=== PATIENT | male | born 1995 | race Caucasian/White ===

== ENCOUNTER 2020-09-18 22:08 | Emergency (ER) | payer BC ==
[~2020-09-18] VITALS: Ht 177.8 cm; Wt 90.7 kg
[2020-09-18 22:26] VITALS: BP 132/72
[2020-09-18] MEDS ORDERED: BACTRIM DS PO STA (22:37)
--- NOTE | 2020-09-18 22:46 | ER.PDOC ---
General Chief Complaint: Skin Rash/Abscess Stated Complaint: RASH Time seen by MD: 22:30 Source: patient Exam Limitations: no limitations History of Present Illness Initial Comments 25-year-old male without significant past medical history presents with complaint of rash to bilateral legs.Patient states the rash began 2 days ago and looked pustular having little whiteheads he said. He denies any fever. 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 He does live in a camper.Patient states he came because he was concerned the area was getting infected. He admits to scratching because it has been itching.He denies any fevers chills nausea vomiting diarrhea or contact with others with similar rash. Allergies: Coded Allergies: No Known Allergies (Unverified , 09/18/20) Past Medical History Medical History: no pertinent history Surgical History: knee Social History Alcohol Use: occassionally Drug Use: none Constitutional: no symptoms reported Respiratory: no symptoms reported Cardiovascular: no symptoms reported Musculoskeletal: no symptoms reported Skin: rash Physical Exam General Appearance: alert, no distress Skin: warm/dry, with erythema (Mild erythema to left lower leg), skin rash (Rash in various stages of healing. There is no crusting or purulence noted. This is apparent on both lower legs however the left lower leg does appear mildly erythematous and mildly tender.) Location: RLE, LLE With: tenderness Extremities: nml ROM, edema Respiratory: no resp. distress NEURO/PSYCH: oriented x 3 Results/Orders Results/Orders Orders - PAM DANIELSON MD Sulfamethoxazole/Trimethoprim (Bactrim D (09/18/20 22:37) Tetanus-Diphtheria Toxoids/Pf (Tenivac S (09/18/20 23:00) Vital Signs Date Time Temp Pulse Resp B/P (MAP) Pulse Ox O2 Delivery O2 Flow Rate FiO2 09/18/20 22:26 98.1 76 16 96 09/18/20 22:26 98.1 76 16 09/18/20 22:26 98.1 76 16 132/72 (92) 96 Room Air Progress Progress Tetanus given today and 1 Bactrim p.o. given in the emergency department. Being that the rash is 2 to 3 days old and has begun healing is difficult to say if these are bites or if this is something more consistent with a MRSA infection. His description of pustules is more consistent with MRSA however again I am unsure due to the later stage of presentation. To be safe patient is being treated with Bactrim in case of a simple cellulitis or a MRSA infection. ER DEPART Departure Time of Disposition: 22:45 Disposition: 01 HOME / SELF CARE / HOMELESS Impression: Primary Impression: Rash Condition: Stable Referrals: PCP,UNKNOWN (PCP) PRIMARY CARE PROVIDER Duration or Time Spent with Pa: 6 Return to Work/School Can a patient return to work?: Yes Can a patient return to school: Yes PAM DANIELSON MD Sep 18, 2020 22:45
[2020-09-18] MEDS ORDERED: BACTRIM DS ONE (22:47)
[2020-09-18] MEDS ORDERED: TENIVAC SYRINGE IM ONE (23:00)
== END 2020-09-18 22:55 ==
LOC: ER 22:08
DX: R21 Rash and other nonspecific skin eruption (principal)
CPT/HCPCS: 99283